=== PATIENT | female | born 1960 | race Caucasian/White ===

== ENCOUNTER 2024-03-28 12:12 | Emergency (ER) | payer OTHER, SELFPAY ==
[2024-03-28 12:21] VITALS: BP 117/69; PULSE 68; RESP 16; TEMP 37; O2SAT 98; BMI 23.1
--- NOTE | 2024-03-28 12:24 | DI.RAD.S_ITS ---
PROCEDURE: XR ANKLE LT MIN 3V INDICATIONS: injury/bent forward TECHNIQUE: 3 views of the ankle were acquired. COMPARISON: None. FINDINGS: Diffuse osseous demineralization. No fracture or dislocation. The ankle mortise is preserved on the nonweightbearing view. No talar dome osteochondral defect. Heterotopic ossification adjacent to the inferior tip of the lateral malleolus, likely secondary to prior ligamentous injury. No significant tibiotalar joint effusion. Phleboliths along the anterior lower calf. IMPRESSION: No acute fracture or dislocation of the left ankle. Dictated by: Víctor Ortega M.D. on 03/28/2024 at 13:07 Approved by: Víctor Ortega M.D. on 03/28/2024 at 13:08
--- NOTE | 2024-03-28 12:24 | DI.RAD.S_ITS ---
PROCEDURE: XR FOOT LT MIN 3V INDICATIONS: injury/bent forward TECHNIQUE: 3 views of the foot were acquired. COMPARISON: None. FINDINGS: Diffuse osseous demineralization. No fracture or dislocation. The Lisfranc interval is preserved on the nonweightbearing view. Mild scattered midfoot and 1st TMT osteoarthritis. IMPRESSION: No acute fracture or dislocation of the left foot. Dictated by: Víctor Ortega M.D. on 03/28/2024 at 13:08 Approved by: Víctor Ortega M.D. on 03/28/2024 at 13:10
--- NOTE | 2024-03-28 12:47 | ED_ITS ---
HPI - Extremity Injury (Lower) General Chief Complaint: Extremity Injury, Lower Stated Complaint: foot injury Time Seen by Provider: 03/28/24 12:47 Source: patient Mode of arrival: Ambulatory History of Present Illness HPI Narrative: Patient is a pleasant 63-year-old female presents to the emergency room department today with her . Patient was walking, rolled her left foot, toes rolled underneath and she rolled on top of the left foot, this happened earlier today. Patient showed she has a history of osteoarthritis, numbness and tingling to the foot and toes is ongoing and not new. However now the patient has discomfort and pain with ambulation and putting pressure on the foot. She is able to put pressure on the foot it just causes her discomfort and pain. Took 1 Tylenol prior to being seen here in the emergency room department. Took Tylenol around 830 this morning. No other further complaints. Related Data Home Medications Medication Instructions Recorded Confirmed No Known Home Medications 02/23/24 02/23/24 Allergies Allergy/AdvReac Type Severity Reaction Status Date / Time No Known Drug Allergies Allergy Verified 03/28/24 12:23 Review of Systems Review of Systems Narrative: Negative except as above Musculoskeletal Comments: Left dorsal foot pain Patient History Social History Smoking Status: Never smoker Smoking Status: Never smoker Substance Use Type: does not use Exam Initial Vital Signs Initial Vital Signs: Vital Signs Temperature 98.6 F 03/28/24 12:21 Pulse Rate 68 03/28/24 12:21 Respiratory Rate 16 03/28/24 12:21 Blood Pressure 117/69 03/28/24 12:21 Pulse Oximetry 98 03/28/24 12:21 Oxygen Delivery Method Room Air 03/28/24 12:21 Reviewed Eyes Pupils: PERRL EOM: EOM intact bilaterally Skin Other: Warm pink and dry, pulses are present, cap refill is preserved. No soft tissue swelling, no abrasion, no ecchymosis, no signs of deformity. Neuro Other: Cranial nerves are grossly intact, cognition speech, are normal. Patient was wheeled into the fast track area. Patient was given crutches prior to discharge and was able to ambulate on crutches out of the FastTrack. Extrem Other: Range of motion, pulses, cap refill, strength is retained in the upper and lower extremities. Examination of the left foot and ankle, no soft tissue swelling, no bruising, no ecchymosis is noted, no deformities noted. Patient can wiggle her toes. No pain upon palpation of the lateral medial ankle. No pain upon the calcaneus. No pain pain along the 5th meta tarsal. Pain upon palpation of the midfoot. No pain upon palpation of the insole or arch. Procedures Orthopedic Splinting/Casting Injury #1: Additional Comments: Mike wrap to the left foot, crutches and crutches training. Then patient discharged in stable condition. Scores GCS Citation: 15 Course Orders Ordered: ED Orders 03/28/24 12:24 XR ankle LT min 3V Stat XR foot LT min 3V Stat Vital Signs Vital signs: Vital Signs - 8 hr 03/28/24 14:06 Pulse Rate 64 Respiratory Rate 14 Blood Pressure 101/65 Pulse Oximetry 97 Oxygen Delivery Method Room Air Reviewed MDM - Extremity Injury (Lower) Imaging Data Extremity x-ray #1: Radiologist's Impression: [address] [address] XRay Report Signed Patient: Leonor Barth MR#: [id number] : 1960 Acct:[id number] Age/Sex: 63 / F Date of Service: 03/28/24 Loc: ED Accession Number: [id number] Procedure: XR ankle LT min 3V Ordering Provider: Michel Chester MD PROCEDURE: XR ANKLE LT MIN 3V INDICATIONS: injury/bent forward TECHNIQUE: 3 views of the ankle were acquired. COMPARISON: None. FINDINGS: Diffuse osseous demineralization. No fracture or dislocation. The ankle mortise is preserved on the nonweightbearing view. No talar dome osteochondral defect. Heterotopic ossification adjacent to the inferior tip of the lateral malleolus, likely secondary to prior ligamentous injury. No significant tibiotalar joint effusion. Phleboliths along the anterior lower calf. IMPRESSION: No acute fracture or dislocation of the left ankle. Dictated by: Víctor Ortega M.D. on 03/28/2024 at 13:07 Approved by: Víctor Ortega M.D. on 03/28/2024 at 13:08 Extremity x-ray #2: Radiologist's Impression: [address] [place] [address] XRay Report Signed Patient: Leonor Barth MR#: [id number] : 1960 Acct:[id number] Age/Sex: 63 / F Date of Service: 03/28/24 Loc: ED Accession Number: [id number] Procedure: XR foot LT min 3V Ordering Provider: Michel Chester MD PROCEDURE: XR FOOT LT MIN 3V INDICATIONS: injury/bent forward TECHNIQUE: 3 views of the foot were acquired. COMPARISON: None. FINDINGS: Diffuse osseous demineralization. No fracture or dislocation. The Lisfranc interval is preserved on the nonweightbearing view. Mild scattered midfoot and 1st TMT osteoarthritis. IMPRESSION: No acute fracture or dislocation of the left foot. Dictated by: Víctor Ortega M.D. on 03/28/2024 at 13:08 Approved by: Víctor Ortega M.D. on 03/28/2024 at 13:10 MDM Narrative Medical decision making narrative: 63-year-old female presents to the emergency department with left dorsal foot pain, rolled her foot toes over ankle today, pain with weight-bearing. Patient is able to weightbear just uncomfortable. Favoring the inside of her foot when she ambulates. History of osteoarthritis. History of previous broken foot/ankle but can not remember if it is the left side. Took Tylenol prior to being seen here in the emergency department 1 tablet 500 mg around 830 this morning. Rested it, ice it, elevated it. No other further complaints. X-ray of the ankle and foot are negative for any acute fractures. Mike wrap Crutches Supportive therapy education, ED precautions Patient is wondering if she tore any ligaments Explained to the patient currently at this point in time her exam is negative for any substantial acute findings, she should rest it, elevate it, take [id number] nonsteroidals, give the foot time to kind of cool down anywhere from a 7-10 days. Nonweightbearing for 72 hours and then progress to full weight-bearing. If she continues to have issues and problems I would suggest she make an appointment with her primary care doctor. If her primary care doctor feels she needs to be referred to a foot and ankle specialist to be further evaluated at that point in time they can make the decision if she needs an MRI to evaluate for tendon or ligament damage. Currently at this point in time here in the emergency room department I have evaluated her and currently at this point in time I do not feel that an MRI is warranted for her current complaint. The patient understands. Differential diagnosis foot sprain, ankle sprain, foot contusion, ankle contusion, fall. Discharge Plan Departure Patient Disposition: Home Clinical Impression: Foot sprain Qualifiers: Encounter type: initial encounter Laterality: left Qualified Code(s): S93.602A - Unspecified sprain of left foot, initial encounter Activity Restrictions/Additional Instructions: X-ray of your ankle and foot are negative for any acute fractures. Mike wrap for comfort Crutches nonweightbearing for 72 hours then advance to full weight-bearing as tolerated Elevate, ice, Tylenol and ibuprofen as needed for discomfort and pain Please follow up with her primary care doctor Return to the emergency department as needed This will take anywhere from 5-7 days to improve Prescriptions: No Action No Known Home Medications Referrals: ProviderCleopatra [Primary Care Provider] - Stand Alone Forms: Patient Portal/API
--- NOTE | 2024-03-28 12:55 | PC.NURSE ---
Patient's foot has no noticeable signs of injury or swelling/ bruising. The toes are numb distally which the pt states is normal for her. ROM in tact but she states that it is painful to bear weight. She states that Ice is helping a little and shes also been elevating it
[2024-03-28 14:06] VITALS: BP 101/65; PULSE 64; RESP 14; O2SAT 97
== END 2024-03-28 14:08 | disposition home or self-care (01) ==
PROVIDERS: Emergency Provider Physician Assistant
DX: S93.602A Unspecified sprain of left foot, initial encounter (principal); X50.1XXA Overexertion from prolonged static or awkward postures, initial encounter
CPT/HCPCS: 29515; 73610; 73630; 99282; 99283